=== PATIENT | female | born 1965 | race Two or more races ===

== ENCOUNTER 2020-08-14 14:48 | Emergency (ER) | payer SELFPAY ==
[~2020-08-14] VITALS: Ht 162.6 cm; Wt 59.4 kg
[2020-08-14 14:49] VITALS: BP 141/76
== END 2020-08-14 16:13 | disposition left against medical advice (07) ==
LOC: ER 14:48
DX: J02.9 Acute pharyngitis, unspecified (principal); R05 Cough; Z53.21 Procedure and treatment not carried out due to patient leaving prior to being seen by health care provider